=== PATIENT | female | born 2000 | race Caucasian/White ===

== ENCOUNTER 2020-06-01 09:58 | Outpatient (RCR) | payer OTHER, SELFPAY ==
[2020-06-01 10:23] LABS: Hematocrit 35.3 % (37.0-47.0); Hemoglobin 11.9 g/dL (12.0-15.0)
[2020-06-02] MEDS: RHO(D) IMMUNE GLOBULIN 300 MCG SYRINGE IM (10:48)
== END 2020-08-30 23:59 | disposition home or self-care (01) ==
LOC: ANHLAB 09:58
PROVIDERS: PCP Physician Assistant; Visit Provider Student in an Organized Health Care Education/Training Program
DX: Z29.13 Encounter for prophylactic Rho(D) immune globulin (principal); O36.0990 Maternal care for other rhesus isoimmunization, unspecified trimester, not applicable or unspecified; Z3A.00 Weeks of gestation of pregnancy not specified
CPT/HCPCS: 36415; 85014; 85018; 85461; 90384; 96372; J2790

== ENCOUNTER 2020-07-19 05:19 | Inpatient (IN) | payer OTHER, SELFPAY ==
[2020-07-19] VITALS (36 sets, daily range): BP systolic 80–147; BP diastolic 30–112; PULSE 70–238; RESP 16–20; TEMP 36.6–37.4; O2SAT 98–100; BMI 28.0
--- NOTE | 2020-07-19 05:19 | LDADM ---
This patient, Jim Parnell, was admitted to Labor/Delivery/Recovery 108 on 07/19/20 at 05:19. Plans for labor, pain management and were discussed with patient. Patient/family oriented to hospital policies and general routines including ID bracelet, bed and alarms, visiting hours, pain management, procedures, bathroom and other care routines, personal items, smoking policy, room service/diet and guest tray routines, security routines, and visiting hours. Patient/Family are encouraged to report perceived risks to care and to ask questions if they do not understand what they are told or what they should do. See OBIX for further documentation.
[2020-07-19] MEDS: LACTATED RINGERS 1,000 ML 125 ML IV CONT (05:50)
[2020-07-19] MEDS: AMPICILLIN 2 GM/NS 100 ML 2 GM/100 ML BAG IVPB (05:52)
[2020-07-19] MEDS: fentaNYL CITRATE INJ (*CRX) 100 MCG/2 ML VIAL 50 MCG IV PUSH (05:54)
[2020-07-19 05:56] LABS: Basophils Absolute Auto 0.1 K/mm3 (0.0-0.1); Basophils Percent Auto 0.3 % (0.2-1.2); Eosinophils Percent Auto 0.2 % (0-4.4); Hemoglobin 11.4 g/dL (12.0-15.0); Immature Granulocyte Percent A 0.6 % (0-0.5); Lymphocytes Absolute Auto 1.64 K/mm3 (0.9-3.2); Lymphocytes Percent Auto 9.2 % (18.3-44.2); Mean Corpuscular HGB Conc 34.5 g/dl (32-36); Mean Corpuscular Hemoglobin 30.5 pg (26-34); Mean Corpuscular Volume 88.2 fl (80-100); Mean Platelet Volume 12.1 fl (7.4-10.4); Monocytes Percent Auto 5.4 % (2.6-8.5); Neutrophils Absolute Auto 15.1 K/mm3 (1.3-6.7); Neutrophils Percent Auto 84.3 % (45.5-73.1); Platelet Count Result 136 k/mm3 (150-375); Red Blood Count 3.74 M/mm3 (4.2-5.4); Red Cell Distribution Width 12.7 % (11.5-14.5); White Blood Count 17.9 K/mm3 (4.5-10.0)
--- NOTE | 2020-07-19 06:13 | WPDHPUPDATE1 ---
History and Physical Update Update Date/Time: 07/19/20 06:13 19 yo at 37w2d who presents in labor. Pt states she had regular ctx starting at 2300. She reports some leakage of fluid. She denies any vaginal bleeding and endorses good movement. Her has been uncomplicated thus far. A/P: 19 yo at 37w2d who presents in labor cvx 6cm FHT cat 1 regular ctx on toco Rh+ GBS +, will start PCN continuous EFM expectant management History and Physical has been reviewed, including an updated exam of the patient. There are NO changes in the patient's condition. Risks, benefits, and alternatives have been discussed and questions answered. Patient agrees to proceed with procedure.
--- NOTE | 2020-07-19 06:23 | WPDANESEPPF ---
Anes - Initial Pre Proc Eval Procedure: labor epidural Date/Time: 07/19/20 06:23 Surgeon: Booker Pat MD Pre Op Diagnosis: labor pain Pre Op Diagnosis: Contractions Patient Data Age: 19 Gender: F Height: 1.6 m Weight: 71.8 kg Last Vital Signs Pulse 155 H 07/19/20 06:21 BP 80/66 L 07/19/20 06:21 Pulse Ox 100 07/19/20 06:19 Allergies Allergy/AdvReac Type Severity Reaction Status Date / Time No Known Allergies Allergy Verified 07/13/20 12:39 Home Medications Medication Instructions Recorded Confirmed Type prenat.vits,leslie,jmp-mqhy-uaoqw 1 tablet PO DAILY 07/13/20 07/19/20 History [ #2] Laboratory Tests 07/19/20 07/19/20 05:46 05:46 WBC 17.9 K/mm3 H K/mm3 (4.5-10.0) RBC 3.74 M/mm3 L M/mm3 (4.2-5.4) Hgb 11.4 g/dL L g/dL (12.0-15.0) Hct 33.0 % L % (37.0-47.0) MCV 88.2 fl fl (80-100) MCH 30.5 pg pg (26-34) MCHC 34.5 g/dl g/dl (32-36) RDW 12.7 % % (11.5-14.5) Plt Count 136 k/mm3 L k/mm3 (150-375) MPV 12.1 fl H fl (7.4-10.4) Immature Gran % (Auto) 0.6 % H % (0-0.5) Neut % (Auto) 84.3 % H % (45.5-73.1) Lymph % (Auto) 9.2 % L % (18.3-44.2) Bay % (Auto) 5.4 % % (2.6-8.5) Eos % (Auto) 0.2 % % (0-4.4) Baso % (Auto) 0.3 % % (0.2-1.2) Lymph # (Auto) 1.64 K/mm3 K/mm3 (0.9-3.2) Bay # (Auto) 1.0 K/mm3 H K/mm3 (0.1-0.6) Eos # (Auto) 0.0 K/mm3 K/mm3 (0-0.3) Baso # (Auto) 0.1 K/mm3 K/mm3 (0.0-0.1) Abs Immat Gran (auto) 0.10 K/mm3 H K/mm3 (0.00-0.031) Absolute Neuts (auto) 15.1 K/mm3 H K/mm3 (1.3-6.7) Absolute Nucleated RBC 0.0 K/mm3 K/mm3 (0.0-0.012) Nucleated RBC % 0.0 % % (0.0-0.2) RPR Pending Patient hx anesthesia problems: none Family hx anesthesia problems: none PMFSH Family History Family History Father Hypertension Mother Hypertension Grandparent Hypertension Social History Social History Smoking status: Never smoker Substance use: never Spiritual care concerns: No Anes - Eval Final PreProcedure Day of Procedure 07/19/20 06:23 Patient weight: overweight ASA classification: II Anesthesia type and monitoring: regional epidural Informed Consent: The patient's anesthetic plan and its attendant risks and benefits were discussed with the patient/family/POA. Questions were solicited and answers provided to the satisfaction of the patient/family/POA.
[2020-07-19] MEDS: OXYTOCIN 30 UNITS/NS 500 ML 30 UNITS/500 ML BAG 999 UNITS IV CONT (07:30)
--- NOTE | 2020-07-19 07:40 | PM.OBPRVD ---
OB - Delivery Note Procedure Delivery date: 07/19/20 Procedure: Patient pushed for a spontaneous vaginal delivery. The fetus was delivered atraumatically and placed on the maternal abdomen. The cord was clamped and cut after 1 minute of life. The cord was double clamped and cut and a segment of cord was collected for cord gases. Cord blood was collected for blood type and Coomb's testing. The placenta delivered spontaneously and was noted to be intact. The perineum was inspected and there was a small left labial laceration. The laceration was made hemostatic with a figure of eight suture of 3-0 vicryl. The uterus was firm and good hemostasis was noted. The patient and fetus were stable in the delivery room. Intrapartal events: None Induction method: none Delivery monitor: external FHT Route of delivery: Episiotomy description: None Laceration Description: Labial (left) Delivery repair: vicryl Specimen: No Quantitative Blood Loss (ml): 250 Anesthesia type: Epidural Disposition: floor () Complications: No immediate complications Baby Date of : 07/19/20 Time of : 07:28 Weeks of gestation at delivery: 37 Infant gender: Male Weight (pounds): 6 Weight (ounces): 13 presentation: vertex position: Right Occiput Anterior Placenta delivery description: Spontaneous cord vessel description: 3 Vessels score one minute: 8 score five minutes: 9
[2020-07-19] MEDS: LANOLIN (LANSINOH) 7.5 GM CREAM 1 APPLIC TOPICAL (11:10)
[2020-07-19] MEDS: MULTIVIT/MIN/PREN/FOL AC/IRON TABLET 1 TAB PO (11:10)
[2020-07-19] MEDS: DOCUSATE SODIUM 100 MG CAPSULE PO (11:10)
--- NOTE | 2020-07-19 19:51 | PC.NURSE ---
1055 Pt admitted to room 279 per wheelchair from labor and delivery after vaginal delivery today of viable male infant at 0725, with Dr. Pat. Mother is a and is choosing to pump and bottle feed infant. FOB present. Couple oriented to room, staffing and procedures. Admission folder reviewed. Pt's VSS and assessment WNL.
[2020-07-20] VITALS: BP 119/73; PULSE 75; RESP 16; TEMP 36.8; O2SAT 99
[2020-07-20 04:00] VITALS: BP 116/71; PULSE 69; RESP 16; TEMP 36.7; O2SAT 99
[2020-07-20 04:32] LABS: Hematocrit 31.5 % (37.0-47.0); Hemoglobin 10.4 g/dL (12.0-15.0)
[2020-07-20] MEDS: DOCUSATE SODIUM 100 MG CAPSULE PO (07:05)
[2020-07-20] MEDS: MULTIVIT/MIN/PREN/FOL AC/IRON TABLET 1 TAB PO (07:05)
[2020-07-20] MEDS: SIMETHICONE 80 MG TAB.CHEW PO (07:06)
[2020-07-20 07:15] VITALS: BP 106/68; PULSE 74; RESP 18; TEMP 36.4
--- NOTE | 2020-07-20 07:35 | WPDANLDPN2 ---
Anes-Prog Note L&D Date/Time: 07/20/20 07:35 Comfortable throughout: labor and delivery Neuraxial method: epidural Epidural/Spinal procedure site: clean & non-tender Neuro status: Neuro function grossly intact. Cardiovascular status: normal Respiratory status: normal Airway patency: baseline Mental status: baseline Post-Op hydration status: normal Vital Signs: Last Vital Signs Temp 36.7 C 07/20/20 04:00 Pulse 69 07/20/20 04:00 Resp 16 07/20/20 04:00 BP 116/71 07/20/20 04:00 Pulse Ox 99 07/20/20 04:00 Pain score (VAS): 04/19 I/O: Intake & Output 07/19/20 07/19/20 07/20/20 15:59 23:59 07:59 Intake Total 1740 Balance 1740 Post-procedural complaints: none Patient feedback: Patient satisfied with anesthetic care.
[2020-07-20 07:42] LABS: Rapid Plasma Reagin Non-Reactive (NonReactive)
--- NOTE | 2020-07-20 09:17 | PM.OBDSVD ---
DS: Admitting Diagnosis Admitting Diagnosis Admitting Diagnosis: Labor OB - DS: Summary OB Procedures : None OB Procedures Intrapartum: Spontaneous Vag Delivery OB Procedures: : None Time Spent with Patient Time attestation: Total time spent providing and/or coordinating discharge services: DS: Data Data Completed and Pending Pending studies at discharge: Pending at discharge 07/19/20 10:21 Surgical [PTH] Routine Labs on day of discharge: Labs from last 24 hours 07/20/20 07/20/20 07/19/20 03:48 03:48 05:46 Hgb 10.4 L Hct 31.5 L RPR Non-reactive Blood Type O Negative Antibody Screen TNP Screen Negative Baby's Blood Type B pos Baby's RAFY Negative Doses of RhIg Required 1 Discharge Plan Discharge Discharging Clinician: Booker Pat Patient Disposition: Home, Self-Care Activity: as tolerated and pelvic rest Diet: regular Patient Instructions: Antibiotic Form, Vaginal Delivery (DC) Stand Alone Forms: General Discharge Information Follow-up/Referrals: Booker Pat MD [Physician] - 4 Weeks Discharge Medications: New acetaminophen [Mapap (acetaminophen)] 325 mg Tablet 650 mg PO Q6H PRN (Reason: Mild Pain (1-3) Or Headache) Qty: 30 RF: 0 ibuprofen 600 mg Tablet 600 mg PO Q6H PRN (Reason: Cramping) Qty: 30 RF: 0 Continued #2 Tablet 1 tablet PO DAILY RF: 0 Date of admission: 07/19/20 05:19 Primary Care Provider: Gavino,Meredith Cruz Admitting Provider: Booker Pat Attending physician on admission: Booker Pat Condition: Stable
--- NOTE | 2020-07-20 13:19 | PC.NURSE ---
1000 Mother continues to pump at each of baby's feedings; she was re-evaluated for correct flange size, and continued with 24mm. Mother reports comfortable pumping; small droplets of colostrum visible today. Pt reports having an Even [employer] pump at home. Pt has Alexis ZHANG contact information for home reference.
[2020-07-20] MEDS: RHO(D) IMMUNE GLOBULIN 300 MCG/2 ML SYRINGE IM (14:15)
[2020-07-20 20:00] VITALS: BP 123/72; PULSE 72; RESP 16; TEMP 36.7; O2SAT 100
--- NOTE | 2020-07-21 07:30 | PM.OBDSVD ---
DS: Admitting Diagnosis Admitting Diagnosis Admitting Diagnosis: labor OB - DS: Summary OB Procedures : None OB Procedures Intrapartum: Spontaneous Vag Delivery OB Procedures: : None Status at Discharge Functional status at discharge: independent ambulation Overall status at discharge: patient is back to baseline Time Spent with Patient Time attestation: Total time spent providing and/or coordinating discharge services: Time spent: Less than 30 minutes Exam Const: General: comfortable and no acute distress Resp: Effort & Inspection: normal respiratory effort Auscultation: clear to auscultation bilaterally Cardio: Rate: regular rate GI: GI Palp: Yes Soft to palpation Auscultation: normal bowel sounds Other: Fundus firm below umbilicus Psych: Appearance: grossly normal Mental Status: mental status grossly normal Affect: normal affect DS: Data Data Completed and Pending Pending studies at discharge: Pending at discharge 07/19/20 10:21 Surgical [PTH] Routine Labs on day of discharge: Labs from last 24 hours 07/20/20 07/19/20 03:48 05:46 RPR Non-reactive Blood Type O Negative Antibody Screen TNP Screen Negative Baby's Blood Type B pos Baby's RAFY Negative Doses of RhIg Required 1 Discharge Plan Discharge Discharging Clinician: Booker Pat Patient Disposition: Home, Self-Care Activity: as tolerated and pelvic rest Diet: regular Patient Instructions: Antibiotic Form, Vaginal Delivery (DC) Stand Alone Forms: General Discharge Information Follow-up/Referrals: Booker Pat MD [Physician] - 4 Weeks Discharge Medications: New acetaminophen [Mapap (acetaminophen)] 325 mg Tablet 650 mg PO Q6H PRN (Reason: Mild Pain (1-3) Or Headache) Qty: 30 RF: 0 ibuprofen 600 mg Tablet 600 mg PO Q6H PRN (Reason: Cramping) Qty: 30 RF: 0 Continued #2 Tablet 1 tablet PO DAILY RF: 0 Date of admission: 07/19/20 05:19 Primary Care Provider: NevaehMeredith Admitting Provider: Booker Pat Attending physician on admission: Booker Pat Condition: Stable
[2020-07-21 08:00] VITALS: BP 117/69; PULSE 66; PULSE 68; RESP 18; RESP 20; TEMP 36.7; O2SAT 100
[2020-07-21] MEDS: DOCUSATE SODIUM 100 MG CAPSULE PO (08:25)
[2020-07-21] MEDS: MULTIVIT/MIN/PREN/FOL AC/IRON TABLET 1 TAB PO (08:25)
--- NOTE | 2020-07-21 09:00 | PC.NURSE ---
Patient viewed the discharge video Mother & Baby Care, The First Two Weeks . Patient was given the opportunity and encouraged to ask questions. Patient verbalized understanding of information shared and has been given the mother/baby guide for home reference.
[2020-07-21] MEDS: WITCH HAZEL 40 PADS 1 PAD TOPICAL (09:07)
[2020-07-21] MEDS: BENZOCAINE 20% AER SPR (*SP) 56 GM CAN 1 SPRAY TOPICAL (09:07)
--- NOTE | 2020-07-21 09:10 | PC.NURSE ---
Consult with pt., mother wishes to pump and bottle feed. Mother has been pumping after each feeding using hospital pump. Mother has a Evenflow pump for home use and will familiarized self with use once home. Reviewed her pump and instructions , breast pump care and usage, pumping schedule, nipple care, and collection and storage of breast milk. Encouraged [id number], breast massage and manual expression to stimulate supply. Assessed patient for correct flange size, 24mm flange, placement and draw. Patient verbalizes and demonstrates understanding of instructions. Mother is feeding as required and waking to feed if needed. is currently meeting outcomes for weight, output, jaundice and feeding frequencies. Mother states she feels confident to initiate pumping once at home. Reviewed transition to breast milk, signs of adequate intake, and engorgement/relief. Instructed to call ICP if intake/output less than required. Reviewed regular medications mother is taking. Information provided per Brenda. Reviewed community resources on the [facility] website and in the Mom/Baby guide. Information on outpatient services provided. Mother has no further questions at this time.
--- NOTE | 2020-07-21 09:10 | PC.NURSE ---
Consult with pt., mother wishes to pump and bottle feed. Mother is pumping with hospital pump without difficulties or discomfort. Mother has an Evenflow pump for home use and has familiarized self with use. Reviewed instructions breast pump care and usage, pumping schedule, nipple care, and collection and storage of breast milk. Encouraged [id number], breast massage and manual expression to stimulate supply. Assessed patient for correct flange size, placement and draw. Patient verbalizes and demonstrates understanding of instructions. Mother is pumping a few drops each feeding. Mother verbalizes she is able to independently latch with appropriate positioning/alignment. She denies any nipple discomfort, is feeding as Reviewed transition to breast milk for both her and and engorgement/relief. Reviewed regular medications mother is taking. Information provided per Brenda. Reviewed community resources on the [facility] website and in the Mom/Baby guide. Information on outpatient services provided. Mother has no further questions at this time.
--- NOTE | 2020-07-21 11:02 | PC.NURSE ---
Self care and infant care discharge instructions given including follow up visit date and time. Pt. verbalized understanding. No questions or concerns voiced.
[2020-07-23 10:26] VITALS: BP 121/62; PULSE 69; RESP 20; TEMP 37; O2SAT 100
== END 2020-07-21 13:05 | disposition home or self-care (01) | DRG 807 ==
LOC: ANHLDR 05:48 → ANHOB2 11:29
PROVIDERS: Admitting Provider Student in an Organized Health Care Education/Training Program; PCP Physician Assistant; Visit Provider Student in an Organized Health Care Education/Training Program
DX: O99.824 Streptococcus B carrier state complicating childbirth (principal); Z37.0 Single live birth; O70.0 First degree perineal laceration during delivery; O76 Abnormality in fetal heart rate and rhythm complicating labor and delivery; Z3A.37 37 weeks gestation of pregnancy
CPT/HCPCS: 36415; 85014; 85018; 85025; 85461; 86592; 86850; 86880; 86900; 86901; 88307; 90384; A9270; J0290; J2590; J2790; J3010; J7120